=== PATIENT | male | born 1970 | race Caucasian/White ===

== ENCOUNTER → 2017-03-10 | Day surgery (SDC) | payer BC, OTHER ==
[~2017-03-10] MED LIST: ACETAMINOPHEN 1000 MG/100 ML 100 ML IV ONE; BUPIVACAINE/EPINEPHRINE 0.25% 50 ML VIAL ONE; KETOROLAC TROMETHAMINE 60 MG/2 ML (IM) VIAL IM ONE; LACTATED RINGER'S 1000 ML INJ 1,000 ML ONE; MEPERIDINE HCL 50 MG/ML VIAL ONE; MIDAZOLAM HCL 2 MG/2 ML VIAL ONE; ONDANSETRON HCL 4 MG/2 ML VIAL IV PUSH ONE; PROPOFOL 200 MG/20 ML AMP IV ONE; SODIUM CHLOR 0.9% 250 ML INJ 250 ML IV ONE; VANCOMYCIN HCL 1000 MG VIAL ONE; ZITH250T PO
--- NOTE | 2017-03-10 11:31 | MP ---
cc: JAYSHREE MONTE M.D., WAGID F. M.D. DATE OF SURGERY: 03/10/2017 PROCEDURE Bilateral laparoscopic inguinal hernia repair with mesh. PREOPERATIVE DIAGNOSIS Bilateral reducible inguinal hernias, right side larger than left. POSTOPERATIVE DIAGNOSIS Bilateral reducible inguinal hernias, right side larger than left, with indirect and direct components on both sides. ANESTHESIA LMA. SURGEON Isaac. ESTIMATED BLOOD LOSS Less than 30 mL. FLUIDS 1250 mL crystalloid. COMPLICATIONS None. DRAINS None. SPECIMEN None. PROCEDURE IN DETAIL The patient was taken to the operating room and placed on the operating table in the supine position. After an adequate level of laryngeal mask anesthesia was instituted, the abdomen and groin were shaved, prepped and draped. A timeout was taken, confirming the correct patient, site and procedure to be performed. Skin and subcutaneous tissue was infiltrated with local anesthetic and an incision made in the umbilicus and carried through the fascia sharply. The peritoneal cavity was directly visualized. A 12 mm balloon trocar was inserted and the balloon inflated. The abdomen was insufflated. The patient was placed in Trendelenburg position. A 10 mm, 30 degree laparoscope was then inserted. Two 12 mm trocars were then placed, one in the left lower quadrant and one in the right lower quadrant. Both entered the abdominal cavity under direct vision uneventfully. The peritoneum was then incised on the right side as this was the larger hernia and the hernia sac reduced into the abdominal cavity. This was stripped off of the spermatic cord structures with gentle blunt dissection. When this was completed, Masood's ligament was dissected free and the fatty tissue was taken off of the anterior abdominal wall. A window was created behind the spermatic cord structures. A 6 x 6 inch piece of UltraPro mesh was trimmed in half and then slit longitudinally and placed into the pelvis after rounding the corners. The inferior leaf of mesh was brought under the cord structures and the mesh was transfixed to Masood's ligament with 4.0 mm bk. 4.8 mm bk were used to transfix the mesh to the transversalis fascia. Two bk were placed laterally to create a new internal ring and minimize the risk of hernia recurrence. When this was completed the surgeon's finger was inserted into the defect and this was seen to be entirely encompassed by the mesh with good overlap between the edge of the defect and the edge of the mesh. Attention was then turned to the left side and the peritoneum was incised and peeled down as before. The hernia sac was reduced into the abdominal cavity and as on the right side the patient was noted to have both direct and indirect hernia components. A window was created behind the spermatic cord structures. The remaining piece of mesh was trimmed on the corners, slit longitudinally and then placed into the pelvis. The inferior leaf of mesh was brought under the spermatic cord structures and the mesh was then transfixed to Masood's ligament with 4.0 mm bk. The mesh was fixed to the transversalis fascia with 4.8 mm bk. The mesh was further secured laterally with the inferior and superior leaf re-stapled together with 4.8 mm bk. Three bk were placed medially as the mesh was slit slightly further than desired. When this was completed, the surgeon's finger was inserted into the defect and the defect was seen to be entirely encompassed by mesh. With hemostasis assured, insufflation was decreased and the peritoneum was re-approximated on both sides. Insufflation was then completely discontinued and the left and right lower quadrant trocars were removed under direct vision. No bleeding was noted from the trocar sites. The laparoscope and umbilical port were then removed. The fascia was closed at both the left and right lower quadrant trocar sites with 0 Vicryl suture in a [id number] fashion. The mesh was closed in the umbilicus with both simple interrupted and [id number] 0 Vicryl suture. The remaining local anesthetic was injected into the trocar sites and left and right lower quadrants. The skin was closed at all three sites with 4-0 Vicryl in an interrupted buried fashion. The skin was dressed with Steri-Strips. The patient was extubated and taken back to the recovery room in stable condition. Sponge and needle counts were reported to be correct. MD KATHY Seymour/MING /11:04 AM /11:19 AM
== END | disposition home or self-care (01) ==
LOC: ESDC 07:07
PROVIDERS: ATTEND Surgery Trauma Surgery
DX: K40.20 Bilateral inguinal hernia, without obstruction or gangrene, not specified as recurrent (principal)
CPT/HCPCS: 00840; 49650; C1781; J0131; J1885; J2175; J2250; J2405; J3010; J3370; J7050; J7120